=== PATIENT | male | born 1975 | race Caucasian/White ===

== ENCOUNTER 2018-04-01 13:19 | Emergency (ER) | payer OTHER | END 2018-04-01 17:34 | disposition home or self-care (01) | LOC: FTE 13:19 | DX: H66.92 Otitis media, unspecified, left ear (principal) | CPT/HCPCS: 99283 ==

== ENCOUNTER 2018-11-13 08:28 | Emergency (ER) | payer OTHER | END 2018-11-13 09:36 | disposition home or self-care (01) | LOC: FTE 08:28 | DX: J02.9 Acute pharyngitis, unspecified (principal); F17.210 Nicotine dependence, cigarettes, uncomplicated | CPT/HCPCS: 99283 ==